=== PATIENT | female | born 1985 | race Caucasian/White ===

== ENCOUNTER 2016-06-10 19:29 | Emergency (ER) | payer BC ==
[~2016-06-10] VITALS: Ht 165.1 cm; Wt 100.3 kg
[~2016-06-10 19:29] MED LIST: LEVO100T7 PO; METH0.2T39 PO; PRENTAB26 PO
[2016-06-10 19:42] VITALS: Ht 165.1 cm; Wt 100.3 kg
[2016-06-10] MEDS ORDERED: SODIUM CHLORIDE 0.9% 1000ML 1,000 ML IV STA (20:14)
--- NOTE | 2016-06-10 20:27 | EMERGENCY ROOM VISIT NOTE ---
History Report prepared by Calos: Jaime Whitaker Under the Supervision of: Dr. Maciel James D.O. First contact with patient: 20:08 Chief Complaint: VAGINAL BLEEDING Stated Complaint: 9 WKS PREG,BLEEDING History of Present Illness The patient is a 30 year old female who presents to the Emergency Room with complaints of vaginal bleeding occurring today. She wiped 3 times continuously with bright red blood. She also complains of some mild abdominal pain. She is currently 9 weeks 3 days by ultrasound. The ultrasound was performed about a week ago. Her blood type is A negative. This is her third . She has had one miscarriage, and she has one child. The last time she miscarried was at 9 weeks. The patient denies fevers, chills, urinary symptoms, lower extremity swelling, or any other complaints. She does not have any medical problems. Source of History: patient Onset: today Position: other (global) Quality: other (vaginal bleeding) Associated Symptoms: + abdominal pain, No chills, No fevers, No urinary symptoms Review of Systems See HPI for pertinent positives & negatives. A total of 10 systems reviewed and were otherwise negative. Past Medical & Surgical Medical Problems: (1) Miscarriage (2) Family History Patient reports no known family medical history. Social History Smoking Status: Never Smoker Marital Status: Housing Status: lives with family Current/Historical Medications Scheduled Levothyroxine Sodium (Levothyroxine Sodium), 1 TAB PO DAILY Multivit/Min/Iron/Fol Ac/Pren ( Vitamin), 1 TAB PO DAILY Allergies Coded Allergies: No Known Allergies (Unverified , 02/14/16) PER [facility] Physical Exam Vital Signs Date Time Temp Pulse Resp B/P Pulse Ox O2 Delivery O2 Flow Rate FiO2 06/11/16 00:37 37.0 78 18 116/71 98 06/11/16 00:18 82 18 116/71 98 Room Air 06/10/16 21:50 95 18 134/83 99 Room Air 06/10/16 20:50 112 18 118/68 99 Room Air 06/10/16 19:42 37.2 100 16 144/94 100 Room Air Physical Exam GENERAL: Patient is awake, alert, and in no acute distress. Patient is resting comfortably and showing no signs of anxiety EYES: The conjunctivae are clear. The pupils are round and reactive. EARS, NOSE, MOUTH AND THROAT: The nose is without any evidence of any deformity. Mucous membranes are moist tongue is midline NECK: The neck is nontender and supple. RESPIRATORY: Normal respiratory effort is noted there is no evidence of wheezing rhonchi or rales CARDIOVASCULAR: Regular rate and rhythm noted there no murmurs rubs or gallops normal S1 normal S2 GASTROINTESTINAL: The abdomen is soft. Bowel sounds are present in all quadrants. Abdomen is nontender BIMANUAL EXAM: External genitalia normal in appearance, no active bleeding, cervix is closed, no cervical motion tenderness, bilateral adnexal tenderness, no guarding. MUSCULOSKELETAL/EXTREMITIES: There is no evidence of gross deformity full range of motion is noted in the hips and shoulders SKIN: There is no obvious evidence of any rash. There are no petechiae, pallor or cyanosis noted. NEUROLOGIC: Patient is awake alert and oriented x3 Medical Decision & Procedures ER Provider Diagnostic Interpretation: US results as stated below per my review and radiologist interpretation. FIRST TRIMESTER OBSTETRICAL ULTRASOUND CLINICAL HISTORY: . Vaginal bleeding. COMPARISON STUDY: No previous studies for comparison. FINDINGS: There is a single alive intrauterine gestation. The crown-rump rump length measures 29 mm corresponding to an estimated postmenstrual age of 9 weeks and 5 days. heart rate was 159. Neither maternal ovary was visualized. There is trace fluid within the endocervical canal. Endovaginal scanning was suboptimal due to lack of optimal probe penetration. IMPRESSION: Technically limited study. Single alive intrauterine gestation. The estimated postmenstrual age is 9 weeks and 5 days. Electronically signed by: Aram Bardales M.D. 06/10/2016 9:53 PM Dictated Date/Time: 06/10/2016 9:50 PM Laboratory Results 06/10/16 00:00 Red Blood Count 4.21, Mean Corpuscular Volume 88.6, Mean Corpuscular Hemoglobin 29.9, Mean Corpuscular Hemoglobin Concent 33.8, Mean Platelet Volume 12.5, Neutrophils (%) (Auto) 64.0, Lymphocytes (%) (Auto) 28.2, Monocytes (%) (Auto) 5.0, Eosinophils (%) (Auto) 2.4, Basophils (%) (Auto) 0.2, Neutrophils # (Auto) 6.73, Lymphocytes # (Auto) 2.96, Monocytes # (Auto) 0.53, Eosinophils # (Auto) 0.25, Basophils # (Auto) 0.02 06/10/16 00:00 Test 06/10/16 00:00 06/10/16 21:50 White Blood Count 10.51 K/uL (4.8-10.8) Red Blood Count 4.21 M/uL (4.2-5.4) Hemoglobin 12.6 g/dL (12.0-16.0) Hematocrit 37.3 % (37-47) Mean Corpuscular Volume 88.6 fL (80-100) Mean Corpuscular Hemoglobin 29.9 pg (25-34) Mean Corpuscular Hemoglobin Concent 33.8 g/dl (32-36) Platelet Count 191 K/uL (130-400) Mean Platelet Volume 12.5 fL (7.4-10.4) Neutrophils (%) (Auto) 64.0 % Lymphocytes (%) (Auto) 28.2 % Monocytes (%) (Auto) 5.0 % Eosinophils (%) (Auto) 2.4 % Basophils (%) (Auto) 0.2 % Neutrophils # (Auto) 6.73 K/uL (1.4-6.5) Lymphocytes # (Auto) 2.96 K/uL (1.2-3.4) Monocytes # (Auto) 0.53 K/uL (0.11-0.59) Eosinophils # (Auto) 0.25 K/uL (0-0.5) Basophils # (Auto) 0.02 K/uL (0-0.2) RDW Standard Deviation 46.4 fL (36.4-46.3) RDW Coefficient of Variation 14.3 % (11.5-14.5) Immature Granulocyte % (Auto) 0.2 % Immature Granulocyte # (Auto) 0.02 K/uL (0.00-0.02) Anion Gap 9.0 mmol/L (3-11) Est Creatinine Clear Calc Drug Dose 180.4 ml/min Estimated GFR () 147.8 Estimated GFR (Non- 127.5 BUN/Creatinine Ratio 12.2 (10-20) Calcium Level 8.4 mg/dl (8.5-10.1) Total Bilirubin 0.1 mg/dl (0.2-1) Aspartate Amino Transf (AST/SGOT) 20 U/L (15-37) Alanine Aminotransferase (ALT/SGPT) 28 U/L (12-78) Alkaline Phosphatase 59 U/L (45-117) Total Protein 7.5 gm/dl (6.4-8.2) Albumin 3.5 gm/dl (3.4-5.0) Globulin 4.0 gm/dl (2.5-4.0) Albumin/Globulin Ratio 0.9 (0.9-2) Human Chorionic Gonadotropin, Quant 43963 mIU/mL Urine Color YELLOW Urine Appearance CLEAR (CLEAR) Urine pH 7.0 (4.5-7.5) Urine Specific [place] 1.011 (1.000-1.030) Urine Protein NEG (NEG) Urine Glucose (UA) NEG (NEG) Urine Ketones NEG (NEG) Urine Occult Blood 1+ (NEG) Urine Nitrite NEG (NEG) Urine Bilirubin NEG (NEG) Urine Urobilinogen NEG (NEG) Urine Leukocyte Esterase NEG (NEG) Urine WBC (Auto) 1-5 /hpf (0-5) Urine RBC (Auto) 0-4 /hpf (0-4) Urine Hyaline Casts (Auto) 1-5 /lpf (0-5) Urine Epithelial Cells (Auto) 20-30 /lpf (0-5) Urine Bacteria (Auto) NEG (NEG) Laboratory results per my review. Medications Administered Medications (Trade) Dose Ordered Sig/Gerardo Route Start Time Stop Time Status Last Admin Dose Admin Sodium Chloride (Nss 1000ml) 1,000 ml @ 999 mls/hr Q1H1M STAT IV 06/10/16 20:14 06/10/16 21:14 DC 06/10/16 20:46 999 MLS/HR ED Course 2007: The patient was evaluated in room C08. A complete history and physical examination were performed. 2014: Sodium Chloride 1000 ml @ 999 mls/hr IV 2330: I discussed the patient's case with Dr. Casillas, OB-DRAG OUT WORKER with [facility]. 0005: Upon reevaluation, the patient is resting comfortably. I discussed the results and treatment plan with her. She verbalized agreement of the treatment plan. She will be discharged home. Medical Decision Differential diagnosis: Etiologies such as ectopic , dysfunction uterine bleeding, bleeding dyscrasia, trauma, infection, as well as others were entertained. Nursing notes reviewed. Patient's laboratory studies from [facility] was also reviewed. The patient is a 30-year-old female who presented to the emergency department for an evaluation of vaginal bleeding. The patient is currently in her first trimester of . She had a previous miscarriage last February. The patient states she was approximately 9 weeks by ultrasound as well as dates. She was told that her blood take was a negative. The patient's laboratory results from her [employer] physician's office were reviewed and she was A- earlier this month. The patient's bimanual exam did not reveal any cervical dilation. She did not have any active bleeding. I discussed the patient's laboratory and radiographic studies with her. She was treated with IV fluids in the emergency department. I also discussed her condition with her covering OB/ DRAG OUT WORKER physician. He asked me to give the patient RhoGAM even though her blood type in the ER tonight was a positive. It is unclear why the abnormality was noted. The patient's primary [employer] physician feels that she did have a weakly positive Rh test that was done recently and feels that she may have an underlying Rh+ blood type however the RhoGAM would cover her in case she was actually Rh-. I discussed this with the patient and she was agreeable. She was encouraged to rest and avoid any strenuous activity. She was also encouraged to avoid any heavy lifting. She was also encouraged to follow-up with her [employer] physician for further evaluation or return to the emergency apartment immediately if symptoms change worsen or if the need arises. Consults Time Called: [phone] Consulting Physician: Dr. Casillas, OB-DRAG OUT WORKER with [facility] Returned Call: [phone] I discussed the patient's case with Dr. Casillas, OB-DRAG OUT WORKER with [facility]. Impression Primary Impression: Threatened miscarriage Additional Impression: First trimester bleeding Scribe Attestation The scribe's documentation has been prepared under my direction and personally reviewed by me in its entirety. I confirm that the note above accurately reflects all work, treatment, procedures, and medical decision making performed by me. Departure Information Dispostion Home / Self-Care Referrals Bolivar Head M.D. (PCP) Srini Casillas ., DO Forms HOME CARE DOCUMENTATION FORM, IMPORTANT VISIT INFORMATION, WORK / SCHOOL INSTRUCTIONS Patient Instructions ED Miscarriage Poss, My [facility], RhoD Immune Globulin Human Solution for injection Additional Instructions Call your [employer] physician in the morning to schedule a follow-up appointment. Avoid any heavy lifting. Problem Qualifiers
[2016-06-10 21:15] LABS: BASO % 0.2 %; BASO ABS # 0.02 K/uL (0-0.2); COMPLETE YES; EOS % 2.4 %; HEMATOCRIT 37.3 % (37-47); IG% 0.2 %; LYMPH % 28.2 %; LYMPH ABS # 2.96 K/uL (1.2-3.4); MEAN CELL VOLUME 88.6 fL (80-100); MEAN CORPUSCULAR HEMOGLOBIN 29.9 pg (25-34); MEAN CORPUSCULAR HGB CONC 33.8 g/dl (32-36); MEAN PLATELET VOLUME 12.5 fL (7.4-10.4); PLATELET COUNT 191 K/uL (130-400); RED BLOOD COUNT 4.21 M/uL (4.2-5.4); WHITE BLOOD COUNT 10.51 K/uL (4.8-10.8)
[2016-06-10 21:23] LABS: BUN/CREATININE RATIO 12.2 (10-20); CALCIUM 8.4 mg/dl (8.5-10.1); CREATININE 0.54 mg/dl (0.60-1.20); POTASSIUM 4.1 mmol/L (3.5-5.1)
[2016-06-10 21:25] LABS: ALB/GLOB RATIO 0.9 (0.9-2)
--- NOTE | 2016-06-10 21:54 | DIAGNOSTIC IMAGING REPORT ---
FIRST TRIMESTER OBSTETRICAL ULTRASOUND CLINICAL HISTORY: . Vaginal bleeding. COMPARISON STUDY: No previous studies for comparison. FINDINGS: There is a single alive intrauterine gestation. The crown-rump rump length measures 29 mm corresponding to an estimated postmenstrual age of 9 weeks and 5 days. heart rate was 159. Neither maternal ovary was visualized. There is trace fluid within the endocervical canal. Endovaginal scanning was suboptimal due to lack of optimal probe penetration. IMPRESSION: Technically limited study. Single alive intrauterine gestation. The estimated postmenstrual age is 9 weeks and 5 days. Electronically signed by: Aram Bardales M.D. 06/10/2016 9:53 PM Dictated Date/Time: 06/10/2016 9:50 PM
[2016-06-10 22:41] LABS: URINE APPEARANCE CLEAR (CLEAR); URINE BILIRUBIN NEG (NEG); URINE COLOR YELLOW; URINE EPITHELIAL CELL AUTO 20-30 /lpf (0-5); URINE NITRITE NEG (NEG); URINE SPECIFIC GRAVITY 1.011 (1.000-1.030); UROBILINOGEN NEG (NEG)
[2016-06-10 22:43] LABS: MANUAL MICROSCOPIC REQUIRED? NO; REVIEW REQ? NO
[2016-06-11 00:37] VITALS: BP 116/71; PULSE 78; TEMP 37; O2SAT 98
[2016-06-11 00:46] VITALS: BP 123/75; PULSE 84; O2SAT 98
== END 2016-06-11 01:07 | disposition home or self-care (01) ==
LOC: C.EDB 19:30 → C.EDC 06-11 01:07
DX: O20.0 Threatened abortion (principal); Z3A.09 9 weeks gestation of pregnancy

== ENCOUNTER 2016-06-14 19:06 | Emergency (ER) | payer BC ==
[~2016-06-14] VITALS: Ht 165.1 cm; Wt 98.1 kg
[~2016-06-14 19:06] MED LIST changes: -METH0.2T39 PO
[2016-06-14 19:10] VITALS: TEMP 36.9; Ht 165.1 cm; Wt 98.1 kg
[2016-06-14 19:38] LABS: HEMATOCRIT 37.6 % (37-47); MEAN CELL VOLUME 89.7 fL (80-100); MEAN CORPUSCULAR HEMOGLOBIN 30.5 pg (25-34); PLATELET COUNT 200 K/uL (130-400); RED BLOOD COUNT 4.19 M/uL (4.2-5.4); WHITE BLOOD COUNT 9.78 K/uL (4.8-10.8)
[2016-06-14] MEDS ORDERED: HYDROmorphone INJ 2 MG/ML SYR/VIAL IV STA (20:32)
[2016-06-14] MEDS ORDERED: OXYC-57 PO (21:43)
--- NOTE | 2016-06-14 21:47 | EMERGENCY ROOM VISIT NOTE ---
History Report prepared by Calos: Micha Doty Under the Supervision of: Dr. Angeli Engle D.O. First contact with patient: 19:13 Chief Complaint: VAGINAL BLEEDING Stated Complaint: 10 WKS PREG PAIN AND BLEEDING History of Present Illness The patient is a 30 year old female who presents to the Emergency Room with complaints of worsening vaginal bleeding beginning this week. She is 10 weeks . She was seen in the ED earlier this week for similar symptoms, but states that her bleeding has worsened. The patient has a history of one previous miscarriage occurring four months ago. She notes that she has one healthy two and a half year old child as well. The patient also complains of abdominal pain. She notes that her abdominal pain generally increases while her bleeding increases. Source of History: patient Onset: This week Position: other (vagina) Quality: other (bleeding) Timing: worsening Associated Symptoms: + abdominal pain Review of Systems See HPI for pertinent positives & negatives. A total of 10 systems reviewed and were otherwise negative. Past Medical & Surgical Medical Problems: (1) Miscarriage (2) Family History Patient reports no known family medical history. Social History Smoking Status: Former Smoker Marital Status: Housing Status: lives with family Current/Historical Medications Scheduled Levothyroxine Sodium (Levothyroxine Sodium), 100 MCG PO QAM Multivit/Min/Iron/Fol Ac/Pren ( Vitamin), 1 TAB PO QPM Scheduled PRN Oxycodone/Acetaminophen 5MG/325MG (Percocet 5MG/325MG), 1 TABLET PO Q4H PRN for Pain Allergies Coded Allergies: No Known Allergies (Unverified , 06/14/16) PER EPIC Physical Exam Vital Signs Date Time Temp Pulse Resp B/P Pulse Ox O2 Delivery O2 Flow Rate FiO2 06/14/16 21:55 77 16 110/60 98 Room Air 06/14/16 20:28 78 20 119/80 100 Room Air 06/14/16 19:10 36.9 104 18 151/88 99 Room Air Physical Exam HEENT: Head - normocephalic and atraumatic Pupils are equal, round, and reactive to light. Extraocular eye muscles are intact, and sclera are anicteric. Nose - moist nasal mucosa without discharge. Mouth - moist buccal mucosa. Oropharynx is nonerythematous and there is no tonsillar exudate or edema noted. Neck: Supple; no JVD, nuchal rigidity, cervical lymphadenopathy. Heart: Regular rate and rhythm. There is a normal S1 and S2 with no murmurs, clicks, or gallops appreciated. Lungs: Clear to auscultation bilaterally with no wheezes, rales, or rhonchi. Abdomen: Soft, completely nontender, nondistended, with good bowel sounds. There are no palpable pulsatile masses or hepatosplenomegaly. There is no guarding, rigidity, or rebound noted. Extremities: No evidence of cyanosis, clubbing, or edema. There are easily palpable peripheral pulses. Skin: warm and dry with good turgor and no rashes. Medical Decision & Procedures Laboratory Results 06/14/16 19:30 Test 06/14/16 19:30 Red Blood Count 4.19 M/uL (4.2-5.4) Mean Corpuscular Volume 89.7 fL (80-100) Mean Corpuscular Hemoglobin 30.5 pg (25-34) Mean Corpuscular Hemoglobin Concent 34.0 g/dl (32-36) RDW Standard Deviation 46.1 fL (36.4-46.3) RDW Coefficient of Variation 14.0 % (11.5-14.5) Mean Platelet Volume 12.0 fL (7.4-10.4) Human Chorionic Gonadotropin, Quant 72697 mIU/mL Laboratory results per my review. Medications Administered Medications (Trade) Dose Ordered Sig/Gerardo Route Start Time Stop Time Status Last Admin Dose Admin Hydromorphone HCl (Dilaudid Inj) 2 mg NOW STAT IV 06/14/16 20:32 06/14/16 20:33 DC 06/14/16 21:03 2 MG Procedure Medications ordered include: Dilaudid IV. ED Course 1915: I reviewed that patient's visit note from 06/10/2016. [place] [address] at this time. The patient was evaluated in room C6. A complete history and physical exam was performed. 2031: Ordered Dilaudid Inj 2 mg IV. 2029: I reassessed the patient. She is resting comfortably. 2144: I discussed findings and results with her. She verbalized agreement of the treatment plan. The patient was discharged home. Medical Decision The patient is a 30 year old female who presents to the ED with vaginal bleeding. Differential diagnosis includes threatened miscarriage, missed , bleeding in first trimester, as well as other etiologies were considered. [place]: [place] [address]. Stable H&H. This is a 30-year-old female patient who is at approximately 10 weeks' who has had increased abdominal cramping and vaginal bleeding over the past couple of days. She was evaluated earlier in the week and found to have an intrauterine . However, the bleeding has increased. A quantitative hCG has decreased. I discussed the case with the [facility] staff physical therapist on-call. They will see her in follow-up to repeat her quantitative hCG early in the week. The patient had RhoGAM during her visit earlier this week. The patient had good relief of her abdominal cramping with the IV analgesia. I will give her prescription for Percocet to use over the next couple of days. Consults Time Called: 2029 Consulting Physician: Dr. Thea VEGAS Returned Call: [phone] Discussed the patient's case. Dr. Sidhu will follow up with the patient in the office. Impression Primary Impression: Threatened miscarriage Scribe Attestation The scribe's documentation has been prepared under my direction and personally reviewed by me in its entirety. I confirm that the note above accurately reflects all work, treatment, procedures, and medical decision making performed by me. Departure Information Dispostion Home / Self-Care Prescriptions Oxycodone/Acetaminophen 5MG/325MG (PERCOCET 5MG/325MG) Tab 1 TABLET PO Q4H Y for Pain, #20 TAB Prov: Angeli Engle D.O. 06/14/16 Referrals Bolivar Head M.D. (PCP) Forms HOME CARE DOCUMENTATION FORM, IMPORTANT VISIT INFORMATION, WORK / SCHOOL INSTRUCTIONS Patient Instructions Miscarriage During, My [facility] Additional Instructions Follow up with OB on Friday for follow up appointment to check quantitative HCG Percocet - 1 tab. every 4 hours for pain
[2016-06-14 21:55] VITALS: BP 110/60; PULSE 77; O2SAT 98
== END 2016-06-14 21:58 | disposition home or self-care (01) ==
LOC: C.EDB 19:07 → C.EDC 21:58
DX: O20.0 Threatened abortion (principal); Z3A.10 10 weeks gestation of pregnancy; Z87.891 Personal history of nicotine dependence